=== PATIENT | male | born 1990 | race Caucasian/White ===

== ENCOUNTER 2017-05-04 14:42 | Emergency (ER) | payer OTHER ==
[2017-05-04 14:54] VITALS: BP 131/65; PULSE 62; RESP 18; TEMP 98.8; O2SAT 98
--- NOTE | 2017-05-04 15:23 | EDPHY ---
H & P Time Seen by Provider: 05/04/17 14:58 HPI/ROS: CHIEF COMPLAINT: Headache HISTORY OF PRESENT ILLNESS: The patient is a 26-year-old male who presents to the emergency department with ongoing headache. Patient struck his head while standing on a refrigerator Tuesday. He developed a headache on Tuesday. It has been waxing waning but constantly present. It is worsening. He has no focal neurologic deficits. No numbness or tingling. No nausea or vomiting. He describes mild blurred vision. REVIEW OF SYSTEMS: My complete review of systems is negative except as mentioned in the HPI. Past Medical/Surgical History: Negative Past surgical history: Negative Social history: Occasional alcohol. Patient does not smoke use drugs. Smoking Status: Never smoked Physical Exam: Vitals noted GENERAL: Well-appearing, in no acute distress, alert. HEENT: Eyes normal to inspection NECK: No thyromegaly, no lymphadenopathy, supple. Nexus negative. RESPIRATORY: Clear to auscultation bilaterally, no rales, rhonchi or wheezing. CVS: Regular rate and rhythm, no rubs, murmurs, or gallops. ABDOMEN: Soft, nontender, nondistended, no organomegaly. BACK: Normal to inspection, no CVA tenderness. SKIN: Normal color, no rash, warm, dry. No pallor. EXTREMITIES: No pedal edema, no calf tenderness, no Homans sign or cords, no joint swelling. NEURO/PSYCH: Higher functions: Alert and Oriented x3. Normal speech and cognition. Normal mood and affect. Cranial nerves: Normal as tested. Cerebellar: Normal as tested. Good finger to nose, good [id number], normal gait. Peripheral exam: Normal motor exam. Normal sensation. Normal reflexes. Constitutional: Initial Vital Signs Temperature (C) 37.1 C 05/04/17 14:51 Heart Rate 62 05/04/17 14:51 Respiratory Rate 18 05/04/17 14:51 Blood Pressure 131/65 H 05/04/17 14:51 O2 Sat (%) 98 05/04/17 14:51 O2 Delivery Mode Room Air Allergies/Adverse Reactions: No Known Allergies Allergy (Unverified 05/04/17 14:50) Home Medications: Medication Instructions Recorded NK [No Known Home Meds] 05/04/17 Medical Decision Making ED Course/Re-evaluation: In the emergency department I discussed possible etiologies with the patient. I answered all his questions. I discussed the pros and cons of CT imaging. After discussion patient would prefer to have CT imaging at this time for his worsening headache. This was ordered. I re-evaluated the patient. After further thought the patient did not want CT imaging. I again discussed the pros and cons of this. He felt comfortable with this plan. No focal neurologic deficits. I answered all his questions. He is given warnings prior to leaving. He was given follow-up with Dr. Tellez. Differential Diagnosis: My differential includes but is not limited to concussion, contusion, subarachnoid hemorrhage, subdural hematoma, epidural hematoma Departure - Departure Disposition: Home, Routine, Self-Care Clinical Impression: Concussion Qualifiers: Encounter type: initial encounter Loss of consciousness presence/duration: without LOC Qualified Code(s): S06.0X0A - Concussion without loss of consciousness, initial encounter Condition: Good Instructions: Concussion (ED) Additional Instructions: Return with increasing headache, weakness, numbness, vomiting or any other concerns. Referrals: Missy Tellez MD [Medical Doctor] - 5-7 days, call for appt.
== END 2017-05-04 16:07 | disposition home or self-care (01) ==
DX: S06.0X0A Concussion without loss of consciousness, initial encounter (principal); W22.8XXA Striking against or struck by other objects, initial encounter